=== PATIENT | female | born 1990 | race Two or more races ===

== ENCOUNTER 2019-09-16 09:11 | Outpatient (CLI) | payer OTHER ==
[~2019-09-16] VITALS: Ht 154.9 cm; Wt 104.3 kg
[2019-09-16] MEDS ORDERED: AMOX1TAB5 PO (09:47)
[2019-09-16] MEDS ORDERED: FLONASE16 GM NASAL (09:47)
== END 2019-09-16 10:11 | disposition home or self-care (01) ==
LOC: OFIC 805 09:11
PROVIDERS: ATTEND Otolaryngology Otology & Neurotology
DX: J34.89 Other specified disorders of nose and nasal sinuses (principal); J32.8 Other chronic sinusitis

== ENCOUNTER 2019-12-16 08:38 | Outpatient (CLI) | payer OTHER ==
[~2019-12-16 08:38] MED LIST: AMOX1TAB5 PO; FLONASE16 GM NASAL
== END 2019-12-16 14:00 | disposition home or self-care (01) ==
LOC: OFIC 805 08:38
PROVIDERS: ATTEND Otolaryngology Otology & Neurotology
DX: J34.89 Other specified disorders of nose and nasal sinuses (principal); J31.0 Chronic rhinitis; R09.82 Postnasal drip